=== PATIENT | male | born 1970 | race Caucasian/White ===

== ENCOUNTER 2016-12-06 09:39 | Emergency (ER) | payer SELFPAY ==
[2016-12-06] MEDS ORDERED: ONDANSETRON HCL IV 4 MG/2 ML VIAL IVP ONE (10:09)
[2016-12-06] MEDS ORDERED: MECLIZINE 25 MG TABLET PO ONE (10:09)
--- NOTE | 2016-12-06 10:09 | Emergency Department Record ---
History of Present Illness - General Chief Complaint: Dizziness Stated Complaint: DIZZY Time Seen by Provider: 12/06/16 10:00 Source: Patient Mode of Arrival: Ambulatory Limitations: No limitations - History of Present Illness Initial Comments: 46 yo male presents with sudden onset of room spinning like dizziness. He was at work during the onset. He was in the restroom, urinated, turn around with the onset of the symptoms. No speech changes, no vision loss, no weakness of the arms or legs. The spinning improves if he focuses on an object and worsens if he closes his eyes or turns his head. No significant headache. The symptoms cause some nausea. No family history of strokes, seizures, brain aneurysms or tumors. MD Complaint: Dizziness, Lightheadedness Onset/Timin -: Hour(s) Timing: Sudden onset Description: Difficulty walking, Lightheadedness History of Same: No History of Trauma: No Severity: Severe Improves With: Nothing Worsens With: Nothing Associated Symptoms: Denies other symptoms - Oniel Coma Scale Eye Response: (4) Open spontaneously Motor Response: (6) Obeys commands Verbal Response: (5) Oriented Oniel Total: 15 - Symptoms of Stroke Symptoms of stroke: Dizziness - Related Data Home Medications Medication Instructions Recorded Confirmed Last Taken Alprazolam [Alprazolam] 0.5 mg PO BID 12/06/16 12/06/16 Unknown Prazosin HCl 1 mg PO QHS 12/06/16 12/06/16 Unknown Risperidone [Risperdal] 1 mg PO DAILY 12/06/16 12/06/16 Unknown Sertraline HCl [Zoloft] 100 mg PO DAILY 12/06/16 12/06/16 Unknown Trazodone HCl [Desyrel] 50 mg PO QHS 12/06/16 12/06/16 Unknown Previous Rx's Medication Instructions Recorded Meclizine HCl [Antivert] 25 mg PO Q8H #20 tablet 12/06/16 Ondansetron [Zofran Odt] 4 mg PO Q8H #20 tab.rapdis 12/06/16 Allergies Allergy/AdvReac Type Severity Reaction Status Date / Time Penicillins Allergy PT UNSURE Verified 12/06/16 09:57 OF REACTION Travel Screening - Travel/Exposure Within Last 30 Days Have you traveled within the last 30 days?: No Past Medical History - SOCIAL HISTORY Smoking Status: Never smoker Alcohol Use: None Drug Use: None - RESPIRATORY Hx Respiratory Disorders: No - CARDIOVASCULAR Hx Cardio Disorders: No - NEURO Hx Neuro Disorders: No - GI Hx GI Disorders: No - Hx Genitourinary Disorders: No - ENDOCRINE Hx Endocrine Disorders: No - MUSCULOSKELETAL Hx Musculoskeletal Disorders: Yes Comment:: bulging disc lower back - PSYCH Hx Psych Problems: Yes Hx Anxiety: Yes Hx Depression: Yes Comment:: PTSD - HEMATOLOGY/ONCOLOGY Hx Hematology/Oncology Disorders: No Family Medical History Any Significant Family History?: Yes Family Hx Comment (NOT TO BE USED IN PLACE OF ITEMS BELOW): Father- irregular heart beat Hx Cancer: Father, Mother Hx Diabetes: Father Hx HTN: Father Physical Exam - General General Appearance: Alert, Oriented x3, Cooperative, No acute distress Limitations: No limitations - Head Head exam: Atraumatic, Normocephalic, Normal inspection - Eye Eye exam: Normal appearance, PERRL, Nystagmus (fast component to the right). negative: Conjunctival injection, Periorbital swelling Pupils: Normal accommodation. negative: Irregular, Miosis, Mydriatic, Unequal - ENT ENT exam: Normal exam, Mucous membranes moist, Normal external ear exam, Normal orophraynx, TM's normal bilaterally. negative: Mucous membranes dry Ear exam: Normal external inspection. negative: Auricular hematoma, Auricular trauma, External canal tenderness Nasal Exam: Normal inspection, Sinus tenderness. negative: Discharge Mouth exam: Normal external inspection, Tongue normal. negative: Muffled voice Teeth exam: Normal inspection. negative: Dental caries Throat exam: Normal inspection. negative: Tonsillar erythema, Tonsillar exudate - Neck Neck exam: Normal inspection, Full ROM. negative: Lymphadenopathy, Tenderness - Respiratory Respiratory exam: Normal lung sounds bilaterally. negative: Respiratory distress - Cardiovascular Cardiovascular Exam: Regular rate, Normal rhythm, Normal heart sounds Peripheral Pulses: 2+: Radial (R), Radial (L) - GI/Abdominal GI/Abdominal exam: Soft. negative: Tenderness - Rectal Rectal exam: Deferred - exam: Deferred - Extremities Extremities exam: Normal inspection, Full ROM, Normal capillary refill. negative: Pedal edema, Tenderness - Back Back exam: Reports: Normal inspection, Full ROM. Denies: CVA tenderness (R), CVA tenderness (L), Muscle spasm, Paraspinal tenderness, Rash noted, Tenderness , Vertebral tenderness - Neurological Neurological exam: Alert, CN II-XII intact, Normal gait, Oriented X3, Reflexes normal, Other (Normal YIFAN, Normal FTN, normal dexterity with finger a rapidly, ) . negative: Abnormal gait, Altered, Motor sensory deficit - Psychiatric Psychiatric exam: Normal affect, Normal mood. negative: Agitated, Anxious, Manic - Skin Skin exam: Dry, Intact, Normal color, Warm. negative: Diaphoretic Course Vital Signs 12/06/16 09:47 Temperature 98.3 F Pulse Rate 58 L Respiratory 20 Rate Blood Pressure 117/72 Pulse Ox 94 L - Reevaluation(s) Reevaluation #1: EKG 1014 Sinus Vishal, rate 51, intervals normal, axis -31, ST no acute changes. No old. 12/06/16 10:22 Reevaluation #2: The HCT was negative for acute process. Ethmoid sinus mucosa edema was noted. 12/06/16 11:24 Reevaluation #3: The labs were complete No acute changes on the lab tests. His examination and clinical symptoms are consistent with peripheral and not central cause Rx provided for Zofran and Antivert 12/06/16 11:28 12/06/16 11:37 Reevaluation #4: We discussed the results We discussed concerning signs and symptoms for immediate return as well as close follow up 12/06/16 11:36 Medical Decision Making - Lab Data Result diagrams: 12/06/16 10:30 12/06/16 10:30 Disposition Clinical Impression: Vertigo Instructions: Vertigo (ED) Additional Instructions: Call your doctor today for close follow up of you symptoms do not work around heavy equipment until the symptoms have resolved. Prescriptions: Meclizine HCl [Antivert] 25 mg PO Q8H #20 tablet Ondansetron [Zofran Odt] 4 mg PO Q8H #20 tab.rapdis Forms: Patient Portal Access
[2016-12-06] MEDS ORDERED: 0.9 % SODIUM CHLORIDE 1,000 ML BAG IV ONE (10:10)
[2016-12-06 11:00] LABS: BASO % 0.4 % (0-6); EOS % 2.4 % (0-6); HEMATOCRIT 44.4 % (42.0-52.0); HEMOGLOBIN 14.4 gm/dl (14.0-18.0); LYMPH % 27.8 % (16-45); MEAN CELL VOLUME 94.1 fl (81-97); MEAN CORPUSCULAR HEMOGLOBIN 30.5 pg (27-33); MEAN CORPUSCULAR HGB CONC 32.4 g/dl (32-36); MEAN PLATELET VOLUME 10.8 fl (7.4-10.4); MONO % 12.4 % (0-9); PLATELET COUNT 193 K/uL (130-400); RED BLOOD COUNT 4.72 M/uL (4.40-5.70); RED CELL DISTRIBUTION WIDTH 13.2 % (11.5-14.5); WHITE BLOOD COUNT W/O DIFF 4.9 K/uL (4.2-12.2)
[2016-12-06 11:12] LABS: GLUCOSE,RANDOM 93 mg/dL (70-110)
[2016-12-06 11:13] LABS: ALB/GLOB RATIO 1.6 (1.1-1.8); ALBUMIN 4.3 gm/dL (3.5-5.0); ALKALINE PHOSPHATASE 63 U/L (38-126); ALT/SGPT 47 U/L (21-72); AST/SGOT 30 U/L (17-59)
[2016-12-06] MEDS ORDERED: ACETAMINOPHEN 500 MG TABLET PO ONE (11:17)
[2016-12-06 11:21] LABS: BLOOD UREA NITROGEN 15 mg/dL (9-20); EST GLOMERULAR FILTRATION RATE > 60 ml/min
== END 2016-12-06 11:56 | disposition home or self-care (01) ==
LOC: ER 09:39
DX: R42 Dizziness and giddiness (principal); R11.0 Nausea; R26.2 Difficulty in walking, not elsewhere classified
CPT/HCPCS: 70450; 80053; 85025; 93005; 93010; 96361; 96374; 99284; J2405; J7030